=== PATIENT | male | born 1945 | race Caucasian/White ===

== ENCOUNTER → 2017-05-28 | Outpatient (CLI) | payer OTHER ==
[~2017-05-28] MED LIST: REGADENOSON INJ 0.4 MG/5 ML DISP.SYRIN IV ONE
--- NOTE | 2017-05-29 19:30 | DRAGON STRESS TEST REPORT ---
Intravenous LexiScan Cardiolite stress test using single photon emmision computerized tomographic. Date of procedure: 05/28/2017. Ordering Provider: Dr. Beatty of [facility]. Patient Status.: Out Patient. Indication: Coronary artery disease. History of 2 stents in the coronary arteries. . Coronary risk factors: Age, hypertension, and dyslipidemia Resting EKG: Sinus Rhythm. Within normal limits. Stress EKG: No changes of ischemia. The patient has no chest pain or discomfort, and there were no arrhythmias seen Reason for termination: Protocol. Conclusions: Normal EKG and hemodynamic response to IV LexiScan. Nuclear data: At rest the patient was given 14.63 millicuries of technetium 99 sestamibi injected intravenously. As per protocol rest non gated SPECT images were obtained. Subsequently the patient was given intravenous LexiScan at a dose of 0.4 mg in 5 mL intravenously, followed by flush with normal saline. Subsequently the stress dose of 47.0 millicuries of technetium 99 sestamibi was injected intravenously. As per protocol stress gated images were obtained. Nuclear interpretation: Review of images showed that bowel contamination artifact of the inferior wall. In spite of this probably all segments of the myocardium had normal perfusion at rest, and normal perfusion post stress with IV LexiScan. All segments of the myocardium had normal motion, contraction, and thickening by gated study. T. I D. ratio was normal at 0.89. Computer read rest, and stress left ventricular ejection fraction were 5356 %, and % respectively. Visually both the stress and rest ejection fractions were normal, and greater than 55%. 1. There is probably no scintigraphic evidence of LexiScan induced myocardial ischemia. 2. There is no scintigraphic evidence of myocardial infarction/scar. Recommendations: 1.Aggressive risk factor modification, and treating the underlying co- morbidities. 2. Correlate clinically. MTDD
== END ==
LOC: RAD 06:43
PROVIDERS: ATTEND Internal Medicine Cardiovascular Disease
DX: R07.89 Other chest pain (principal); I25.118 Atherosclerotic heart disease of native coronary artery with other forms of angina pectoris
CPT/HCPCS: 93017; 78452; A9500; J2785; Q9969

== ENCOUNTER → 2018-10-14 | Outpatient (CLI) | payer OTHER ==
--- NOTE | 2018-10-15 20:01 | DRAGON STRESS TEST REPORT ---
Intravenous Lexiscan Cardiolite stress test using single photon emmision computerized tomography. Date of procedure: 10/14/2018. Ordering Provider: Dr. Madhu Walden; [facility]. Patient's status: Out Patient Indication: Chest pain in a patient with history of coronary artery disease and prior history of stent placement.. Coronary risk factors: Age, dyslipidemia, and tobacco abuse. Resting EKG: Sinus Rhythm. No acute changes. Stress EKG: No changes of ischemia. Patient had transient chest tightness with infusion of Lexiscan, with no EKG changes. There is no arrhythmias seen Reason for termination: Protocol. Conclusions: Normal EKG and hemodynamic response to IV Lexiscan. Nuclear data: At rest the patient was given 13.67 millicuries of technetium 99m sestamibi injected intravenously. As per protocol rest non gated SPECT images were obtained. Subsequently the patient was given intravenous Lexiscan at a dose of 0.4 mg in 5 mL intravenously, followed by flush with normal saline. Subsequently the stress dose of 44.7 millicuries of technetium 99m sestamibi was injected intravenously. As per protocol stress gated images were obtained. Nuclear interpretation: Review of images showed that this is a very poor quality study and difficult to interpret. There is motion artifact, and also bowel contamination artifact of the inferior wall. There is an area of reduced perfusion in the LV apex and the apical inferior wall in the stress images, which normalizes in the stress images. These segments of normal motion contraction and thickening by gated study. The rest of the segments of the myocardium had normal perfusion at rest , and normal perfusion post stress with IV Lexiscan. All segments of the myocardium had normal motion, contraction, and thickening by gated study. T. I D. ratio was borderline abnormal at 1.23. Computer read rest, and stress left ventricular ejection fraction were 56 %, and 51 %, respectively. Visually both the stress and rest ejection fractions were normal, and greater than 55%. Conclusion: 1. There is scintigraphic evidence of Lexiscan induced myocardial ischemia involving a small area of the left ventricular apical segments, and apical inferior wall 2. There is no definite scintigraphic evidence of myocardial infarction/scar. 3. Borderline abnormal TID ratio, which could mean significant coronary artery disease. Recommendations: 1. Recommend maximizing anti-CAD medication, and recommend cardiac catheterization to look for the patency of the placed stent, or for de priyanka lesions in other branches. 2. Aggressive risk factor modification, and treating the underlying co- morbidities. MAYELAD
== END ==
LOC: RAD 06:53
PROVIDERS: ATTEND Internal Medicine Cardiovascular Disease
DX: I25.119 Atherosclerotic heart disease of native coronary artery with unspecified angina pectoris (principal)
CPT/HCPCS: 93017; 78452; A9500; J2785

== ENCOUNTER 2019-01-22 09:51 | Emergency (ER) | payer MEDICARE, OTHER ==
--- NOTE | 2019-01-22 10:21 | ER Document Report ---
ED Medical Screen (RME) - General Chief Complaint: Chest Pain Stated Complaint: CHEST PAIN Time Seen by Provider: 01/22/19 10:09 Primary Care Provider: ROSANGELA GRAMAJO MD [Primary Care Provider] - Follow up as needed Notes: Patient is a 73-year-old male with history of CAD that presents to the emergency department for chief complaint of chest pain, and low back pain. Patient reports the pain started in his right low back, that extended up into his chest, this occurred about 4 days ago, and has been ongoing since then. ROS: Other than noted above, the 12 point review of systems was reviewed with the patient and were negative, all pertinent findings are included in the HPI. PHYSICAL EXAMINATION: Vital signs reviewed. GENERAL: Elderly male, in no acute distress. HEAD: Atraumatic, normocephalic. EYES: Pupils equal round extraocular movements intact, conjunctiva are normal. ENT: Nares patent NECK: Normal range of motion CV: Heart regular rate and rhythm LUNGS: No respiratory distress Musculoskeletal: Normal range of motion NEUROLOGICAL: Normal speech PSYCH: Normal mood, normal affect. MDM: Patient seen and examined for rapid initial assessment. Vital signs reviewed. A comprehensive ED assessment and evaluation of the patient, analysis of test results and completion of the medical decision making process will be conducted by additional ED providers. *Note is created using voice recognition software and may contain spelling, syntax or grammatical errors. TRAVEL OUTSIDE OF THE [place] IN LAST 30 DAYS: No - Related Data Allergies/Adverse Reactions: No Known Allergies Allergy (Verified 06/28/16 12:55) Past Medical History - Past Medical History Cardiac Medical History: Reports: Hx Coronary Artery Disease - elevated cholesterol, Hx Heart Attack - 2009, Hx Hypertension - medicated Pulmonary Medical History: Denies: Hx Asthma, Hx Bronchitis, Hx COPD, Hx Pneumonia Neurological Medical History: Denies: Hx Cerebrovascular Accident, Hx Seizures Renal/ Medical History: Denies: Hx Peritoneal Dialysis GI Medical History: Denies: Hx Hepatitis, Hx Hiatal Hernia, Hx Ulcer Musculoskeltal Medical History: Reports Hx Arthritis Infectious Medical History: Denies: Hx Hepatitis Past Surgical History: Reports: Hx Orthopedic Surgery. Denies: Hx Open Heart Surgery, Hx Pacemaker - Immunizations Hx Diphtheria, Pertussis, Tetanus Vaccination: Yes Physical Exam - Vital signs Vitals: Temp Pulse Resp BP Pulse Ox 97.9 F 77 20 135/92 H 98 02/22/19 10:03 01/22/19 10:03 01/22/19 10:03 01/22/19 10:03 01/22/19 10:03 Course - Vital Signs Vital signs: Temp Pulse Resp BP Pulse Ox 97.9 F 77 20 135/92 H 98 01/22/19 10:03 01/22/19 10:03 01/22/19 10:03 01/22/19 10:03 01/22/19 10:03 Doctor's Discharge - Discharge Referrals: ROSANGELA GRAMAJO MD [Primary Care Provider] - Follow up as needed
[2019-01-22 10:50] LABS: ABSOLUTE BASOPHILS # (AUTO) 0.1 10^3/uL (0.0-0.2); ABSOLUTE EOSINOPHILS # (AUTO) 0.2 10^3/uL (0.0-0.6); ABSOLUTE LYMPHOCYTES (AUTO) 2.1 10^3/uL (0.5-4.7); ABSOLUTE MONOCYTES (AUTO) 0.8 10^3/uL (0.1-1.4); ABSOLUTE NEUT (AUTO) 5.1 10^3/uL (1.7-8.2); BASOPHILS % (AUTO) 0.9 % (0-2); EOSINOPHILS % (AUTO) 1.8 % (0-6); HEMATOCRIT 45.5 % (37.9-51.0); LYMPHOCYTES % (AUTO) 25.3 % (13-45); MEAN CORPUSCULAR HEMOGLOBIN 32.5 pg (27.0-33.4); MEAN CORPUSCULAR HGB CONC 35.2 g/dL (32.0-36.0); MEAN CORPUSCULAR VOLUME 92 fl (80-97); MONOCYTES % (AUTO) 9.5 % (3-13); PLATELET COUNT 187 10^3/uL (150-450); RED BLOOD COUNT 4.93 10^6/uL (4.35-5.55); RED CELL DISTRIBUTION WIDTH 13.3 % (11.5-14.0); SEGMENTED NEUTROPHILS % (AUTO) 62.5 % (42-78); TOTAL CELLS COUNTED % (AUTO) 100 %; WHITE BLOOD COUNT 8.2 10^3/uL (4.0-10.5)
--- NOTE | 2019-01-22 11:04 | RADIOLOGY REPORT (SQ) ---
EXAM DESCRIPTION: CTA CHEST; CTA ABDOMEN/PELVIS W WO COMPLETED DATE/TIME: 01/22/2019 10:49 am REASON FOR STUDY: chest pain, to back COMPARISON: None. TECHNIQUE: CT scan of the chest, abdomen, and pelvis performed with intravenous contrast using helic al scanning technique with dynamic intravenous contrast injection. Images reviewed with lung, soft ti ssue, and bone windows. Delayed images were performed. Reconstructed coronal and sagittal MPR image s reviewed. All images stored on PACS. Advanced 3D imaging as volume rendering, MIPS, SSD performed? yes All CT scanners at this facility use dose modulation, iterative reconstruction, and/or weight based d osing when appropriate to reduce radiation dose to as low as reasonably achievable (ALARA). [facility]: Dose Right [facility]: CareDose [facility]: Dose Right [facility]: Teradose 4D [facility]: [employer] CONTRAST TYPE AND DOSE: contrast/concentration: Isovue 350.00 mg/ml; Total Contrast Delivered: 71.0 ml; Total Saline Delivered: 60.0 ml RENAL FUNCTION: GFR > 60. LIMITATIONS: None. FINDINGS: AORTA AND VESSELS: There is an infrarenal abdominal aortic aneurysm measuring 3.2 x 3.1 cm . Normal caliber of the thoracic aorta. No dissection. Renal arteries, SMA, celiac without stenosis. Calcific atherosclerosis. LUNGS: No significant findings. No nodules or infiltrates. HEART AND MEDIASTINUM: Three-vessel coronary artery calcifications and/or stents. LIVER: Hepatic steatosis. SPLEEN: Normal size. No focal lesions. PANCREAS: No masses. No significant calcifications. No adjacent inflammation or peripancreatic fluid collections. Pancreatic duct not dilated. GALLBLADDER: Contracted. ADRENAL GLANDS: No significant masses or asymmetry. RIGHT KIDNEY AND URETER: No mass, calculi or urinary tract obstruction. LEFT KIDNEY AND URETER: No mass, calculi or urinary tract obstruction. RETROPERITONEUM: No retroperitoneal adenopathy, hemorrhage or masses. BOWEL AND PERITONEAL CAVITY: No masses or inflammatory changes. No free fluid or peritoneal masses. Diverticulosis without evidence of acute diverticulitis. APPENDIX: Normal. ABDOMINAL WALL: No masses. No hernias. BONY STRUCTURES: No significant or acute findings. 3-D IMAGING: Confirms the above findings. OTHER: No other significant finding. IMPRESSION: 1. Aortic atherosclerosis with an infrarenal abdominal aortic aneurysm measuring 3.2 cm . 2. Normal contour and caliber of the thoracic aorta. No evidence of dissection. 3. Hepatic steatosis. 4. Sigmoid diverticulosis. 5. Coronary artery disease. TECHNICAL DOCUMENTATION: JOB ID: [id number] Quality ID # [id number]: Final reports with documentation of one or more dose reduction techniques (e.g., Au tomated exposure control, adjustment of the mA and/or kV according to patient size, use of iterative reconstruction technique) 2010 [employer]- All Rights Reserved Reading location - IP/workstation name: [email or web address]
--- NOTE | 2019-01-22 11:04 | RADIOLOGY REPORT (SQ) ---
EXAM DESCRIPTION: CTA CHEST; CTA ABDOMEN/PELVIS W WO COMPLETED DATE/TIME: 01/22/2019 10:49 am REASON FOR STUDY: chest pain, to back COMPARISON: None. TECHNIQUE: CT scan of the chest, abdomen, and pelvis performed with intravenous contrast using helic al scanning technique with dynamic intravenous contrast injection. Images reviewed with lung, soft ti ssue, and bone windows. Delayed images were performed. Reconstructed coronal and sagittal MPR image s reviewed. All images stored on PACS. Advanced 3D imaging as volume rendering, MIPS, SSD performed? yes All CT scanners at this facility use dose modulation, iterative reconstruction, and/or weight based d osing when appropriate to reduce radiation dose to as low as reasonably achievable (ALARA). [facility]: Dose Right [facility]: CareDose [facility]: Dose Right [facility]: Teradose 4D [facility]: [employer] CONTRAST TYPE AND DOSE: contrast/concentration: Isovue 350.00 mg/ml; Total Contrast Delivered: 71.0 ml; Total Saline Delivered: 60.0 ml RENAL FUNCTION: GFR > 60. LIMITATIONS: None. FINDINGS: AORTA AND VESSELS: There is an infrarenal abdominal aortic aneurysm measuring 3.2 x 3.1 cm . Normal caliber of the thoracic aorta. No dissection. Renal arteries, SMA, celiac without stenosis. Calcific atherosclerosis. LUNGS: No significant findings. No nodules or infiltrates. HEART AND MEDIASTINUM: Three-vessel coronary artery calcifications and/or stents. LIVER: Hepatic steatosis. SPLEEN: Normal size. No focal lesions. PANCREAS: No masses. No significant calcifications. No adjacent inflammation or peripancreatic fluid collections. Pancreatic duct not dilated. GALLBLADDER: Contracted. ADRENAL GLANDS: No significant masses or asymmetry. RIGHT KIDNEY AND URETER: No mass, calculi or urinary tract obstruction. LEFT KIDNEY AND URETER: No mass, calculi or urinary tract obstruction. RETROPERITONEUM: No retroperitoneal adenopathy, hemorrhage or masses. BOWEL AND PERITONEAL CAVITY: No masses or inflammatory changes. No free fluid or peritoneal masses. Diverticulosis without evidence of acute diverticulitis. APPENDIX: Normal. ABDOMINAL WALL: No masses. No hernias. BONY STRUCTURES: No significant or acute findings. 3-D IMAGING: Confirms the above findings. OTHER: No other significant finding. IMPRESSION: 1. Aortic atherosclerosis with an infrarenal abdominal aortic aneurysm measuring 3.2 cm . 2. Normal contour and caliber of the thoracic aorta. No evidence of dissection. 3. Hepatic steatosis. 4. Sigmoid diverticulosis. 5. Coronary artery disease. TECHNICAL DOCUMENTATION: JOB ID: [id number] Quality ID # [id number]: Final reports with documentation of one or more dose reduction techniques (e.g., Au tomated exposure control, adjustment of the mA and/or kV according to patient size, use of iterative reconstruction technique) 2010 [employer]- All Rights Reserved Reading location - IP/workstation name: [email or web address]
[2019-01-22 11:07] LABS: ALANINE AMINOTRANSFERASE 54 U/L (21-72); ALBUMIN 4.1 g/dL (3.5-5.0); ALKALINE PHOSPHATASE 56 U/L (38-126); ANION GAP 9 (5-19); ASPARTATE AMINO TRANSFERASE 37 U/L (17-59); BILIRUBIN,DIRECT 0.2 mg/dL (0.0-0.4); BILIRUBIN,TOTAL 0.6 mg/dL (0.2-1.3); BLOOD UREA NITROGEN 17 mg/dL (7-20); CARBON DIOXIDE 29 mmol/L (22-30); CHLORIDE 103 mmol/L (98-107); GLUCOSE 100 mg/dL (75-110); POTASSIUM 4.7 mmol/L (3.6-5.0); SODIUM 140.8 mmol/L (137-145); TOTAL PROTEIN 6.6 g/dL (6.3-8.2)
--- NOTE | 2019-01-22 13:11 | EKG REPORT ---
SEVERITY:- BORDERLINE ECG - SINUS RHYTHM BORDERLINE INFERIOR Q WAVES : Confirmed by: Siddharth Lozano MD 22-Jan-2019 13:11:02
[2019-01-22 15:04] VITALS: BP 132/75
--- NOTE | 2019-02-09 09:24 | ER Document Report ---
Entered by RADHA SEALS SCRIBE 01/22/19 9230 Acting as scribe for:PHYLLIS SNELL MD ED General - General Chief Complaint: Chest Pain Stated Complaint: CHEST PAIN Time Seen by Provider: 01/22/19 10:09 Primary Care Provider: ROSANGELA GRAMAJO MD [NO LOCAL MD] - Follow up as needed Mode of Arrival: Ambulatory Information source: Patient, [facility] Records Notes: 73-year-old male with a history of coronary artery disease with an NV in 2009 who presents to the emergency department today with complaints of a transient pain that began in his lower back, moved to his flanks bilaterally, and now it is into his chest. Patient states his chest feels heavy currently. Patient states his symptoms today are nothing like his NV, as he states that he was having difficulty breathing and radiation of pain in his left arm during the NV. Patient states the low back pain began about x3-4 days ago and originally "would only be in one spot at a time" radiating through the above-mentioned areas. Patient states the pain comes and goes, but now has began hurting in all of these areas simultaneously. Patient states he is currently pain-free now. TRAVEL OUTSIDE OF THE [place] IN LAST 30 DAYS: No - Related Data Allergies/Adverse Reactions: No Known Allergies Allergy (Verified 06/28/16 12:55) Past Medical History - General Information source: Patient - Social History Smoking Status: Former Smoker Cigarette use (# per day): No Frequency of alcohol use: None Drug Abuse: None Lives with: Family Family History: Reviewed & Not Pertinent Patient has suicidal ideation: No Patient has homicidal ideation: No - Past Medical History Cardiac Medical History: Reports: Hx Coronary Artery Disease, Hx Heart Attack - ?, Hx Hypercholesterolemia, Hx Hypertension - medicated Musculoskeletal Medical History: Reports Hx Arthritis Past Surgical History: Reports: Hx Orthopedic Surgery - Immunizations Hx Diphtheria, Pertussis, Tetanus Vaccination: Yes Review of Systems - Review of Systems Constitutional: No symptoms reported EENT: No symptoms reported Cardiovascular: See HPI, Chest pain Respiratory: No symptoms reported Gastrointestinal: No symptoms reported Genitourinary: See HPI, Flank pain Male Genitourinary: No symptoms reported Musculoskeletal: See HPI, Back pain Skin: No symptoms reported Hematologic/Lymphatic: No symptoms reported Neurological/Psychological: No symptoms reported -: Yes All other systems reviewed and negative Physical Exam - Vital signs Vitals: Temp Pulse Resp BP Pulse Ox 97.9 F 77 20 135/92 H 98 01/22/19 10:03 01/22/19 10:03 01/22/19 10:03 01/22/19 10:03 01/22/19 10:03 - Notes Notes: Physical Exam: General: Alert, appears well. HEENT: Normocephalic. Atraumatic. PERRL. Extraocular movements intact. Oropharynx clear. Neck: Supple. Non-tender. Respiratory: No respiratory distress. Clear and equal breath sounds bilaterally. Cardiovascular: Regular rate and rhythm. Abdominal: Obese. Non-tender. No distension. Normal Bowel Sounds. Back: Minimal lumbar paraspinal musculature tenderness with palpation. No deformity or step off. Extremities: Moves all four extremities. Upper extremities: Normal inspection. Normal ROM. Lower extremities: Normal inspection. No edema. Normal ROM. Neurological: Normal cognition. AAOx4. Normal speech. Psychological: Normal affect. Normal Mood. Skin: Warm. Dry. Normal color. Course - Vital Signs Vital signs: Temp Pulse Resp BP Pulse Ox 97.9 F 77 14 140/86 H 96 01/22/19 10:03 01/22/19 10:03 01/22/19 14:01 01/22/19 14:01 01/22/19 14:01 - Laboratory Result Diagrams: 01/22/19 10:33 01/22/19 10:33 - Diagnostic Test Radiology reviewed: Image reviewed, Reports reviewed - 3.2 x 3.1 cm infrarenal AAA. Diffuse atherosclerosis and coronary artery calcifications. Discharge - Discharge Clinical Impression: Abdominal aortic aneurysm (AAA) 30 to 34 mm in diameter Chest pain Qualifiers: Chest pain type: unspecified Qualified Code(s): R07.9 - Chest pain, unspecified Back pain Qualifiers: Back pain location: back pain in unspecified location Chronicity: unspecified Back pain laterality: unspecified Qualified Code(s): M54.9 - Dorsalgia, unspecified Condition: Stable Disposition: HOME, SELF-CARE Additional Instructions: Chest Pain of Unclear Cause The exact cause of your chest, back and abdomen pain isn't clear. Fortunately, there is no evidence of a dangerous medical condition. Further testing may be required to find the source of the pain. Most often, we find that this pain is coming from the chest wall and low back muscles. The CT scan done today did show a small abdominal aortic aneurysm located just below the renal arteries. This does not appear to be related to the discomfort you have been having. You should call the physician immediately if the pain radiates to the shoulder, jaw or arms; if you start to run a fever or develop a cough; or if you develop shortness of breath, or other new or alarming symptoms. Continue your regular medications. Avoid any activities that tend to make the pain in your chest back and sides worse. Follow-up with your primary care provider in the next week and take copies of your CT scan and CT report. RETURN TO THE EMERGENCY ROOM IF ANY NEW OR WORSENING SYMPTOMS. Referrals: ROSANGELA GRAMAJO MD [NO LOCAL MD] - Follow up in 3-5 days Scribe Attestation: 01/22/19 12:12 I personally performed the services described in the documentation, reviewed and edited the documentation which was dictated to the scribe in my presence, and it accurately records my words and actions. I personally performed the services described in the documentation, reviewed and edited the documentation which was dictated to the scribe in my presence, and it accurately records my words and actions.
== END 2019-01-22 15:27 | disposition home or self-care (01) ==
LOC: ER 09:51
DX: I71.4 Abdominal aortic aneurysm, without rupture (principal); R07.9 Chest pain, unspecified; M54.5 Low back pain; I25.10 Atherosclerotic heart disease of native coronary artery without angina pectoris; I25.2 Old myocardial infarction; E78.00 Pure hypercholesterolemia, unspecified
CPT/HCPCS: 36415; 71275; 74174; 80053; 84484; 85025; 93005; 93010; 99285

== ENCOUNTER → 2020-02-08 | Outpatient (CLI) | payer OTHER | LOC: OD 10:56 | PROVIDERS: ATTEND Physician Assistant | DX: Z01.818 Encounter for other preprocedural examination (principal); R73.9 Hyperglycemia, unspecified; M17.11 Unilateral primary osteoarthritis, right knee | CPT/HCPCS: 36415; 83036 ==